=== PATIENT | female | born 1995 | race Caucasian/White ===

== ENCOUNTER 2018-01-29 14:06 | Outpatient (CLI) | payer MEDICAID ==
[2018-01-29 17:57] LABS: BASOPHILS % (AUTO) 0.4 %; EOSINOPHILS # (AUTO) 0.2 10^3/uL (0.0-0.7); HGB - HEMOGLOBIN 13.5 g/dL (12.0-16.0); LYMPHOCYTES # (AUTO) 1.7 10^3/uL (1.5-3.5); LYMPHOCYTES % (AUTO) 22.8 %; MEAN CORPUSCULAR HGB CONC 33.1 g/dL (32.0-36.0); MEAN CORPUSCULAR VOLUME 87.7 fL (81.0-99.0); MEAN PLATELET VOLUME 7.8 fL (7.9-10.8); MONOCYTES # (AUTO) 0.5 10^3/uL (0.0-1.0); MONOCYTES % (AUTO) 6.1 %; NEUTROPHILS # (AUTO) 5.2 10^3/uL (1.5-6.6); NEUTROPHILS % (AUTO) 68.7 %; PLT - PLATELET COUNT 302 10^3/uL (130-450); RED BLOOD COUNT 4.66 10^6/uL (4.20-5.40); RED CELL DISTRIBUTION WIDTH 13.5 % (12.0-15.0); WHITE BLOOD COUNT 7.6 x10^3/uL (4.8-10.8)
[2018-01-29 18:18] LABS: ALBUMIN 4.9 g/dL (3.2-5.5); ALBUMIN/GLOBULIN RATIO 1.8 (1.0-2.2); ALKALINE PHOSPHATASE 51 IU/L (42-121); ALT ALANINE AMINOTRANSFERASE 21 IU/L (10-60); AST ASPARTATE AMINOTRANSFERASE 29 IU/L (10-42); BILIRUBIN,TOTAL 0.7 mg/dL (0.2-1.0); BUN - BLOOD UREA NITROGEN 13 mg/dL (6-20); CALCIUM 9.5 mg/dL (8.5-10.3); CARBON DIOXIDE - CO2 25 mmol/L (21-32); CHLORIDE 103 mmol/L (101-111); CREATININE 0.6 mg/dL (0.4-1.0); GFR - MDRD 125 (>89); GLUCOSE 86 mg/dL (70-100); SODIUM 136 mmol/L (135-145); TOTAL PROTEIN 7.6 g/dL (6.7-8.2)
== END 2018-01-29 14:07 | disposition home or self-care (01) ==
LOC: LAB.F 14:06
PROVIDERS: ATTEND Nurse Practitioner Family
DX: J02.9 Acute pharyngitis, unspecified (principal); R53.83 Other fatigue
CPT/HCPCS: 36415; 80053; 84443; 85025; 86308

== ENCOUNTER 2018-08-20 10:43 | Outpatient (CLI) | payer BC, MEDICAID ==
--- NOTE | 2018-08-20 15:20 | Ultrasound Report ---
Reason: BREAST LUMP OR MASS Procedure Date: 08/20/2018 Accession Number: [id number] / [id number] Procedure: US - Breast Unilateral Limited CPT Code: FULL RESULT: EXAM: Breast Unilateral Limited DATE: 08/20/2018 11:21 AM CLINICAL HISTORY: BREAST LUMP OR MASS ? COMPARISON: None. TECHNIQUE: Targeted ultrasound was performed of the left breast in the area of clinical concern at 12 o'clock and 1 cm distance from the nipple. ?Color Doppler was employed as appropriate. ? FINDINGS: There is a well-circumscribed homogeneous relatively hypoechoic 0.8 x 0.9 x 0.6 cm wider than tall mass with vascularity within appearance most suggestive of fibroadenoma. The patient relates a history of size change with the menstrual cycle. IMPRESSION: Likely benign finding, BI-RADS 3. Recommendation: Follow-up ultrasound for stability of benign features in 6 months. RADIA
== END 2018-08-20 10:44 | disposition home or self-care (01) ==
LOC: DI 10:43
PROVIDERS: ATTEND Nurse Practitioner Family
DX: N63.20 Unspecified lump in the left breast, unspecified quadrant (principal)
CPT/HCPCS: 76642

== ENCOUNTER 2023-09-20 20:43 | Emergency (ER) | payer MEDICAID ==
[2023-09-20] MEDS ORDERED: SODIUM CHLORIDE 0.9% 1,000 ML IV STA (21:21)
[2023-09-20] MEDS ORDERED: IPRATROPIUM/ALBUTEROL 3 ML NEB INH STA (21:22)
--- NOTE | 2023-09-20 21:25 | ED Physician Documentation ---
History of Present Illness - Stated complaint Stated Complaint: SOA/COUGH/FEVER - Chief complaint Chief Complaint: Resp - History obtained from History obtained from: Patient - Additonal information Additional information: 28yF previously healthy p/w sore throat, cough productive of blood streaked sputum, nasal congestion and fever X 10 days with SOA and wheezing today. patient had negative covid test 2 days ago. +n/v intermittently. denies nausea at prsent. denies diarrhea or urinary sx. denies leg swelling, calf tenderness, hormone use, recent surgery, travel or bedrest PD PAST MEDICAL HISTORY - Past Surgical History Past Surgical History: No - Present Medications Home Medications: Ambulatory Orders Medication Instructions Recorded Confirmed Amoxicillin 875 mg PO BID #20 tablet 09/21/23 Azithromycin [Zithromax Tri-Jamal] 500 mg PO QDAC 5 Days #6 tablet 09/21/23 Saccharomyces Boulardii [Florastor] 250 mg PO BIDWM #20 tab 09/21/23 - Allergies Allergies/Adverse Reactions: Allergies Allergy/AdvReac Type Severity Reaction Status Date / Time No Known Drug Allergies Allergy Verified 09/20/23 20:54 - Social History Does the pt smoke?: Yes Smoking Status: Current every day smoker Does the pt drink ETOH?: Yes Does the pt have substance abuse?: No - Immunizations Immunizations are current?: No - POLST Patient has POLST: No PD ED PE NORMAL - Vitals Vital signs reviewed: Yes - General General: Alert and oriented X 3, No acute distress, Well developed/nourished - HEENT HEENT: Atraumatic, PERRL, EOMI, Moist mucous membranes, Pharynx benign - Neck Neck: Supple, no meningeal sign - Cardiac Cardiac: RRR - Respiratory Respiratory: No respiratory distress, Other (BL end expiratory wheezing and decreased air entry) - Abdomen Abdomen: Non tender, Non distended - Derm Derm: Normal color, Warm and dry - Extremities Extremities: No edema, No calf tenderness / cord - Neuro Neuro: Alert and oriented X 3 Results - Vitals Vitals: Vital Signs - 24 hr 09/20/23 09/20/23 20:45 21:35 Temperature 36.6 C Heart Rate 106 H 99 Respiratory 21 20 Rate Blood Pressure 137/86 H O2 Saturation 94 Oxygen O2 Source Room air - Labs Labs: Laboratory Tests 09/20/23 09/20/2323 20:46 21:34 21:34 WBC 12.7 H RBC 4.65 Hgb 13.1 Hct 39.0 MCV 83.9 MCH 28.2 MCHC 33.6 RDW 12.2 Plt Count 450 MPV 8.5 Neut # (Auto) 9.9 H Lymph # (Auto) 1.5 [place] # (Auto) 0.8 Eos # (Auto) 0.3 Baso # (Auto) 0.1 Absolute Nucleated RBC 0.00 Nucleated RBC % 0.0 Sodium 133 L Potassium 4.2 Chloride 100 L Carbon Dioxide 25 Anion Gap 8.0 BUN 6 Creatinine 0.6 Estimated GFR (MDRD) 119 Glucose 102 Calcium 9.1 Total Bilirubin 0.4 AST 19 ALT 17 Alkaline Phosphatase 60 Total Protein 7.7 Albumin 4.1 Globulin 3.6 Albumin/Globulin Ratio 1.1 Lipase 30 Beta HCG, Quant < 0.6 Nasal Adenovirus (PCR) NOT DETECTED Nasal B. parapertussis DNA (PCR) NOT DETECTED Nasal Coronavir 229E PCR NOT DETECTED Nasal Coronavir HKU1 PCR NOT DETECTED Nasal Coronavir NL63 PCR NOT DETECTED Nasal Coronavir OC43 PCR NOT DETECTED Nasal Enterovir/Rhinovir PCR NOT DETECTED Nasal Influenza B PCR NOT DETECTED Nasal Influenza A PCR NOT DETECTED Nasal Parainfluen 1 PCR NOT DETECTED Nasal Parainfluen 2 PCR NOT DETECTED Nasal Parainfluen 3 PCR NOT DETECTED Nasal Parainfluen 4 PCR NOT DETECTED Nasal RSV (PCR) NOT DETECTED Nasal B.pertussis DNA PCR NOT DETECTED Nasal C.pneumoniae (PCR) NOT DETECTED [place] Human Metapneumo PCR NOT DETECTED Nasal M.pneumoniae (PCR) NOT DETECTED Nasal SARS-CoV-2 (PCR) NOT DETECTED PD Medical Decision Making - ED course ED course: 28yF presents with uri sx X 10 days with hemoptysis. doubt PE given low clinical probability of PE in previously healthy well appearing young woman with no risk factors otherwise. Most likely Viral uri with possibility of superimposed pneumonia. plan to obtain CXR, basic labwork and provide breathing treatment/IVF/reevaluate. BL PNA on CXR. antibiotics provided, rx sent, return precations given. blood cultures ordered. plan to f/u with pcp Departure - Departure Disposition: 01 Home, Self Care Clinical Impression: Dyspnea, Cough, Fever, Pneumonia Condition: Stable Instructions: Pneumonia Dc Prescriptions: Amoxicillin 875 mg PO BID #20 tablet Saccharomyces Boulardii [Florastor] 250 mg PO BIDWM #20 tab Azithromycin [Zithromax Tri-Jamal] 500 mg PO QDAC 5 Days #6 tablet Comments: You were seen in the emergency department for pneumonia. Antibiotics sent electronically to pharmacy. Please follow-up with your primary care provider and return to the emergency department if you have any new or worsening symptoms or other concerns. Forms: PCP List
[2023-09-20] MEDS ORDERED: IPRATROPIUM/ALBUTEROL 3 ML NEB INH ONE (21:41)
[2023-09-20 21:46] LABS: BASOPHILS # (AUTO) 0.1 10^3/uL (0.0-0.1); BASOPHILS % (AUTO) 0.4 %; EOSINOPHILS # (AUTO) 0.3 10^3/uL (0.0-0.7); EOSINOPHILS % (AUTO) 2.6 %; HGB - HEMOGLOBIN 13.1 g/dL (12.0-16.0); LYMPHOCYTES # (AUTO) 1.5 10^3/uL (1.5-3.5); LYMPHOCYTES % (AUTO) 11.4 %; MEAN CORPUSCULAR HEMOGLOBIN 28.2 pg (27.0-31.0); MEAN CORPUSCULAR HGB CONC 33.6 g/dL (32.0-36.0); MEAN CORPUSCULAR VOLUME 83.9 fL (81.0-99.0); MEAN PLATELET VOLUME 8.5 fL (7.9-10.8); MONOCYTES # (AUTO) 0.8 10^3/uL (0.0-1.0); MONOCYTES % (AUTO) 6.4 %; NEUTROPHILS # (AUTO) 9.9 10^3/uL (1.5-6.6); NEUTROPHILS % (AUTO) 78.4 %; PLT - PLATELET COUNT 450 10^3/uL (130-450); RED BLOOD COUNT 4.65 10^6/uL (4.20-5.40); RED CELL DISTRIBUTION WIDTH 12.2 % (12.0-15.0); WHITE BLOOD COUNT 12.7 x10^3/uL (4.8-10.8)
[2023-09-20 21:57] LABS: ALBUMIN 4.1 g/dL (3.2-5.5); ALBUMIN/GLOBULIN RATIO 1.1 (1.0-2.2); ALKALINE PHOSPHATASE 60 IU/L (42-121); ALT ALANINE AMINOTRANSFERASE 17 IU/L (10-60); AST ASPARTATE AMINOTRANSFERASE 19 IU/L (10-42); BILIRUBIN,TOTAL 0.4 mg/dL (0.2-1.0); BUN - BLOOD UREA NITROGEN 6 mg/dL (6-20); CALCIUM 9.1 mg/dL (8.5-10.3); CARBON DIOXIDE - CO2 25 mmol/L (21-32); CHLORIDE 100 mmol/L (101-111); CREATININE 0.6 mg/dL (0.6-1.3); GFR - MDRD 119 (>89); GLUCOSE 102 mg/dL (74-104); LIPASE 30 U/L (11-82); POTASSIUM 4.2 mmol/L (3.5-4.5); SODIUM 133 mmol/L (135-145); TOTAL PROTEIN 7.7 g/dL (6.4-8.9)
[2023-09-20 22:03] LABS: B. PARAPERTUSSIS- RESP PCR PAN NOT DETECTED; B. PERTUSSIS- RESP PCR PANEL NOT DETECTED; C. PNEUMONIAE- RESP PCR PANEL NOT DETECTED; CORONAVIRUS 229E-RESP PCR NOT DETECTED; CORONAVIRUS HKU1-RESP PCR NOT DETECTED; CORONAVIRUS NL63-RESP PCR NOT DETECTED; CORONAVIRUS OC43-RESP PCR NOT DETECTED; HUMAN METAPNEUMOVIRUS NOT DETECTED; INFLUENZA A- RESP PCR PANEL NOT DETECTED; INFLUENZA B - RESP PCR PANEL NOT DETECTED; M. PNEUMONIAE- RESP PCR PANEL NOT DETECTED; PARAINFLUENZA VIRUS 1 NOT DETECTED; PARAINFLUENZA VIRUS 2 NOT DETECTED; PARAINFLUENZA VIRUS 3 NOT DETECTED; PARAINFLUENZA VIRUS 4 NOT DETECTED; RHINOVIRUS/ENTEROVIRUS NOT DETECTED; RSV- RESP PCR PANEL NOT DETECTED; SARS-CoV-2 -RESP PCR PANEL NOT DETECTED
[2023-09-20] MEDS ORDERED: ACETAMINOPHEN 325 MG TABLET PO STA (22:43)
--- NOTE | 2023-09-21 00:02 | XRAY Report ---
PROCEDURE: Chest 2 View X-Ray INDICATIONS: cough, fever, hypoxia TECHNIQUE: 2 views of the chest were acquired. COMPARISON: None. FINDINGS: Surgical changes and devices: None. Lungs and pleura: Bilateral patchy infiltrates consistent with pneumonia, predominantly involving lo wer lobes. No pleural effusions or pneumothorax. Mediastinum: Mediastinal contours appear normal. Heart size is normal. Bones and chest wall: No suspicious bony lesions. Overlying soft tissues appear unremarkable. IMPRESSION: Bilateral pneumonia. Reviewed by: Tip Allan MD on 09/21/2023 12:01 AM PDT Approved by: Tip Allan MD on 09/21/2023 12:01 AM PDT Station ID: [id number]
[2023-09-21] MEDS ORDERED: AZITHROMYCIN INJ 1,000 MG in SODIUM CHLORIDE 0.9% 250 ML IV STA (00:09)
[2023-09-21] MEDS ORDERED: cefTRIAXone 2 GM in SODIUM CHLORIDE 0.9% MINIBAG 100 ML IV STA (00:09)
[2023-09-21] MEDS ORDERED: LIDOCAINE 1% 2 ML VIAL MC ONE (00:14)
[2023-09-21] MEDS ORDERED: AZITHROMYCIN 250 MG TABLET PO STA (00:14)
[2023-09-21] MEDS ORDERED: cefTRIAXone 1 GM VIAL IM STA (00:14)
--- NOTE | 2023-09-21 11:25 | ED Physician Documentation ---
ED Addendum - Addendum Addendum: 09/21/23 11:25 Maria Del Carmen wesley called with questions re azithromycin rx and dosing. Looks like pt recd 1000mg IV here. Recommended to change to 250 mg of azithromycin once a day starting tomorrow for 4 days, 4 tablets.
[2023-09-26 11:11] VITALS: BP 124/75; O2SAT 100
== END 2023-09-21 00:30 | disposition home or self-care (01) ==
LOC: ED 20:43
DX: J18.9 Pneumonia, unspecified organism (principal); R05.9 Cough, unspecified; R50.9 Fever, unspecified; R06.2 Wheezing; F17.200 Nicotine dependence, unspecified, uncomplicated; Z20.822 Contact with and (suspected) exposure to COVID-19
CPT/HCPCS: 36415; 71046; 80053; 83690; 84702; 85025; 87633; 94640; 94664; 96372; 99284; A9270; 85379; 87040